=== PATIENT | male | born 1955 | race Caucasian/White ===

== ENCOUNTER 2018-06-25 21:02 | Emergency (ER) | payer OTHER ==
--- NOTE | 2018-06-25 21:38 | EDPHY ---
H & P Stated Complaint: BILAT EAR, THROAT PAIN AND COUGH 2 DAYS Time Seen by Provider: 06/25/18 21:30 HPI/ROS: CHIEF COMPLAINT: Pharyngitis and ear pain HISTORY OF PRESENT ILLNESS: Patient is a 62-year-old man who is here on a business trip who complains of a sore throat and loss of his voice as well as bilateral ear pain and frontal headaches. Also mild sinus congestion. No fever. No chills or body aches. No GI symptoms. No chest pain or shortness of breath. No cough. Symptoms began about 2 days ago. Severity: Moderate Modifying factors: None REVIEW OF SYSTEMS: Constitutional: See HPI denies: chills, fever, recent injury EENTM: See HPI denies: blurred vision, double vision Respiratory: denies: cough, shortness of breath Cardiac: denies: chest pain, irregular heart rate, lightheadedness, palpitations Gastrointestinal/Abdominal: denies: abdominal pain, diarrhea, nausea, vomiting, blood streaked stools Genitourinary: denies: dysuria, frequency, hematuria, pain Musculoskeletal: denies: joint pain, muscle pain Skin: denies: lesions, rash, jaundice, bruising Neurological: denies: headache, numbness, paresthesia, tingling, dizziness, weakness Hematologic/Lymphatic: denies: blood clots, easy bleeding, easy bruising Immunologic/allergic: denies: HIV/AIDS, transplant 10 systems reviewed and negative except as noted EXAM: GENERAL: Well-appearing, well-nourished and in no acute distress. HEAD: Atraumatic, normocephalic. EYES: Pupils equal round and reactive to light, extraocular movements intact, sclera anicteric, conjunctiva are normal. ENT: TMs with effusion but not erythematous, nares patent, oropharynx slightly erythematous without exudates. Moist mucous membranes. NECK: Normal range of motion, supple without lymphadenopathy or JVD. LUNGS: Breath sounds clear to auscultation bilaterally and equal. No wheezes rales or rhonchi. HEART: Regular rate and rhythm without murmurs, rubs or gallops. ABDOMEN: Soft, nontender, normoactive bowel sounds. No guarding, no rebound. No masses appreciated. BACK: No CVA tenderness, no spinal tenderness, step-offs or deformities EXTREMITIES: Normal range of motion, no pitting or edema. No clubbing or cyanosis. NEUROLOGICAL: Cranial nerves II through XII grossly intact. Normal speech, normal gait. 5/5 strength, normal movement in all extremities, normal sensation , normal reflexes PSYCH: Normal mood, normal affect. SKIN: Warm, dry, normal turgor, no visible rashes or lesions. Source: Patient Exam Limitations: No limitations - Personal History Current Tetanus/Diphtheria Vaccine: Unsure Current Tetanus Diphtheria and Acellular Pertussis (TDAP): Unsure - Medical/Surgical History Hx Asthma: No Hx Chronic Respiratory Disease: No Hx Diabetes: No Hx Cardiac Disease: No Hx Renal Disease: No Hx Cirrhosis: No Hx Alcoholism: No Hx HIV/AIDS: No Hx Splenectomy or Spleen Trauma: No Other PMH: HTN, GERD, GOUT, KNEE REPLACEMENT - Family History Significant Family History: No pertinent family hx - Social History Smoking Status: Never smoked Alcohol Use: Sober Drug Use: None Constitutional: Initial Vital Signs Temperature (C) 36.9 C 06/25/18 21:06 Heart Rate 68 06/25/18 21:06 Respiratory Rate 18 06/25/18 21:06 Blood Pressure 178/97 H 06/25/18 21:06 O2 Sat (%) 93 06/25/18 21:06 O2 Delivery Mode Room Air Allergies/Adverse Reactions: No Known Allergies Allergy (Unverified 06/25/18 21:10) Home Medications: Medication Instructions Recorded Atenolol 50 mg PO 06/25/18 Gout Medications 06/25/18 Omeprazole Magnesium [Prilosec] 10 mg PO 06/25/18 Promethazine HCl/Codeine 5 ml PO Q4-6PRN PRN #90 ml 06/25/18 [Prometh-Codein 6.25-10 mg/5 ml] Medical Decision Making ED Course/Re-evaluation: The patient's fluid strep swab were negative. Will treat with Decadron and coughs a for symptomatic control. Also suggested decongestants. Patient is happy with this plan. We discussed indications for returning. Differential Diagnosis: Partial list of the Differential diagnosis considered include but were not limited to; upper respiratory tract infection, pharyngitis, laryngitis and although unlikely based on the history and physical exam, I also considered sepsis, abscess, pneumonia. I discussed these differential diagnoses and the plan with the patient as well as the usual and expected course. The patient understands that the diagnosis is provisional and that in medicine we are not always correct and that further workup is often warranted. Usual and customary warnings were given. All of the patient's questions were answered. The patient was instructed to return to the emergency department should the symptoms at all worsen or return, otherwise to followup with the physician as we discussed. - Data Points Medications Given: Discontinued Medications Acetaminophen/Codeine Phosphate (Tylenol #3) 2 tab PO EDNOW ONE Stop: 06/25/18 23:20 Last Admin: 06/25/18 23:38 Dose: 2 tab Dexamethasone (Decadron) 10 mg PO EDNOW ONE Stop: 06/25/18 23:17 Last Admin: 06/25/18 23:38 Dose: 10 mg Pseudoephedrine HCl (Sudafed) 30 mg PO EDNOW ONE Stop: 06/25/18 23:40 Last Admin: 06/25/18 23:45 Dose: 30 mg Departure - Departure Disposition: Home, Routine, Self-Care Clinical Impression: Upper respiratory infection Qualifiers: URI type: unspecified URI Qualified Code(s): J06.9 - Acute upper respiratory infection, unspecified Condition: Fair Instructions: Upper Respiratory Infection (ED) Referrals: GLEN ESCAMILLA [Other] - As per Instructions Prescriptions: Promethazine HCl/Codeine [Prometh-Codein 6.25-10 mg/5 ml] 5 ml PO Q4-6PRN PRN # 90 ml PRN Reason: Cough, Moderate
[2018-06-25] MEDS ORDERED: DEXAMETHASONE 4 MG TAB PO ONE (23:16)
[2018-06-25] MEDS ORDERED: ACETAMINOPHEN/CODEINE 300/30MG TAB PO ONE (23:19)
[2018-06-25] MEDS ORDERED: PSEUDOEPHEDRINE HCL 30 MG TAB PO ONE (23:39)
[2018-06-26 00:15] VITALS: BP 156/97
== END 2018-06-26 00:15 | disposition home or self-care (01) ==
DX: J06.9 Acute upper respiratory infection, unspecified (principal); I10 Essential (primary) hypertension; Z96.659 Presence of unspecified artificial knee joint